=== PATIENT | male | born 1995 | race Caucasian/White ===

== ENCOUNTER 2016-12-24 17:25 | Emergency (ER) | payer OTHER ==
[~2016-12-24] VITALS: Ht 172.7 cm; Wt 68.0 kg
[~2016-12-24 17:25] MED LIST: CIPR500T4 PO; FLAG500T PO; LORTA5 PO
[2016-12-24 17:28] VITALS: BP 134/91; PULSE 100; RESP 20; TEMP 97.7; O2SAT 95
--- NOTE | 2016-12-24 17:43 | PD ---
HPI Chief Complaint: Injury Time Seen by Provider: 17:32 Travel History International Travel<30 days: No Contact w/Intl Traveler<30days: No Traveled to known affect area: No History of Present Illness HPI 21-year-old male presents for evaluation of left great toe pain. Prior to arrival he was kicking a soccer ball barefoot and he attempted to kick it forcefully. Since then he's had pain in his left great toe. There was some bleeding coming from the distal aspect of the nailbed which has since ceased. His pain is primarily in the distal aspect left toe. Pain is throbbing, constant, worse with palpation. He has no other complaints at this time. [facility] Past Medical History Medical History: Denies Significant Hx Cancer: No Cardiovascular Problems: No Diminished Hearing: No Endocrine: No Genitourinary: No Immune Disorder: No Musculoskeletal: No Neurologic: No Psychiatric: No Reproductive: No Respiratory: No Immunizations Current: Yes Tetanus Vaccination: Unknown Past Surgical History Appendectomy: Yes Other Surgery: No Social History Alcohol Use: No Tobacco Use: Yes (4-5 CIGG PER DAY) Substance Use: No Allergies-Medications (Allergen,Severity, Reaction): Coded Allergies: Penicillin (Verified Allergy, Unknown, 12/24/16) Reported Meds & Prescriptions Reported Meds & Active Scripts Active No Active Prescriptions or Reported Medications Review of Systems Musculoskeletal: Positive: Pain, No: Limited ROM Skin: Positive Other (bleeding) Physical Exam Narrative GENERAL: Well-developed well-nourished male in no acute distress SKIN: Warm and dry. CARDIOVASCULAR: Regular rate and rhythm. No murmur appreciated. RESPIRATORY: No accessory muscle use. Clear to auscultation. Breath sounds equal bilaterally. MUSCULOSKELETAL: There is tenderness to palpation to the distal aspect of the left great toe. There is some dried blood at the distal aspect of left great toe. The nail is intact and it is related on the nail bed. It is not avulsed. There is no subungual hematoma formation at this time. NEUROLOGICAL: Awake and alert. No obvious cranial nerve deficits. Motor grossly within normal limits. Normal speech. Data Data Last Documented VS Vital Signs Date Time Temp Pulse Resp B/P Pulse Ox O2 Delivery O2 Flow Rate FiO2 12/24/16 17:28 97.7 100 20 134/91 95 Room Air Orders Toe (Min 2vws) (12/24/16 ) Wound Care (12/24/16 17:37) Acetaminophen (Tylenol) (12/24/16 18:00) MDM Medical Decision Making Medical Screen Exam Complete: Yes Emergency Medical Condition: Yes Medical Record Reviewed: Yes Interpretation(s) Toe x-ray reveals soft tissue swelling, no fracture Differential Diagnosis Partial toenail avulsion, toe fracture, laceration, abrasion, contusion, sprain Narrative Course 21-year-old male with distal left great toe pain after kicking a soccer ball barefooted. On examination he has tenderness to palpation left great toe. Fortunately the nail seems to be intact and still. On the nail bed although there is some dried blood on the distal aspect of nail suggesting at least a partial avulsion off the nail bed. There is no subungual hematoma formation at this time. Discussed the options of leaving the nail in place for comfort versus removing the nail. I feel that the nail is currently salvageable as it is still rated on the nail bed. I explained that there is a chance that the nail will continue to become more loose and avulsed off the nailbed which required that the nail be removed for comfort measures. At this point in time primarily conservative measures haven't recommended including rest, cool compresses a few times a day. Local wound care be provided. X-ray imaging will be obtained. X-ray imaging is negative for fracture. The patient is stable for discharge. Diagnosis Primary Impression: Toe contusion Qualified Code: S90.112A - Contusion of left great toe without damage to nail , initial encounter Additional Instructions: As discussed, currently the nail is intact and the nail bed however there was some bleeding coming from underneath the nail medially after the accident. There is a small chance that the nail will continue to live off the nail bed and if so it may require that the nail be [place] for comfort purposes. Apply cool compresses to the affected area a few times a day 10:15 minutes at a time. Take Tylenol or Motrin for discomfort. Follow-up with primary care physician as needed. Return for any emergent medical conditions. Med/Other Pt SpecificInfo: No Change to Meds, Wound Care Scripts No Active Prescriptions or Reported Meds Disposition: 01 DISCHARGE HOME Condition: Stable Artemio Shipman Dec 24, 2016 17:43
[2016-12-24] MEDS ORDERED: ACETAMINOPHEN 325 MG TAB PO ONE (18:00)
--- NOTE | 2016-12-24 18:10 | RADRPT ---
EXAM DATE/TIME: 12/24/2016 18:00 [facility] COMPARISON: No previous studies available for comparison. INDICATIONS : Pain after injury from soccer ball. MEDICAL HISTORY : None. SURGICAL HISTORY : None. ENCOUNTER: Initial ACUITY: 1 day PAIN SCORE: 7/10 LOCATION: Left great toe. FINDINGS: Examination of the first digit of the left foot demonstrates no evidence of fracture or dislocation. No radiopaque foreign bodies are seen. The soft tissues are prominent. CONCLUSION: Soft tissue swelling without fracture. Benji Felder MD on December 24, 2016 at 18:08 Board Certified Radiologist. This report was verified electronically.
== END 2016-12-24 18:37 | disposition home or self-care (01) ==
LOC: NEPB 17:25
DX: S90.112A Contusion of left great toe without damage to nail, initial encounter (principal); W21.02XA Struck by soccer ball, initial encounter
CPT/HCPCS: 73660; 99283

== ENCOUNTER 2017-04-19 15:05 | Emergency (ER) | payer OTHER ==
[~2017-04-19] VITALS: Ht 170.2 cm; Wt 77.2 kg
[2017-04-19 15:08] VITALS: BP 123/85; PULSE 103; RESP 14; TEMP 98.8; O2SAT 96
[2017-04-19] MEDS ORDERED: IBUP800T23 PO (16:39)
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
[2017-04-19] MEDS ORDERED: KETOROLAC TROMETHAMINE 60 MG/2 ML (IM) VIAL IM ONE (16:45)
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
== END 2017-04-19 17:09 | disposition home or self-care (01) ==
LOC: NEPD 15:05
DX: S80.02XA Contusion of left knee, initial encounter (principal); S80.01XA Contusion of right knee, initial encounter; V49.49XA Driver injured in collision with other motor vehicles in traffic accident, initial encounter; Y92.410 Unspecified street and highway as the place of occurrence of the external cause; Z88.0 Allergy status to penicillin; Z72.0 Tobacco use
CPT/HCPCS: 73564; 96372; 99284; J1885

== ENCOUNTER 2017-04-26 17:12 | Emergency (ER) | payer OTHER ==
[~2017-04-26] VITALS: Ht 175.3 cm; Wt 80.0 kg
[2017-04-26 17:13] VITALS: BP 134/85; PULSE 97; RESP 20; TEMP 98.3; O2SAT 96
[2017-04-26] MEDS ORDERED: METHOCARBAMOL 500 MG TAB PO ONE (17:45)
[2017-04-26] MEDS ORDERED: IBUPROFEN 800 MG TAB PO ONE (17:45)
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
[2017-04-26] MEDS ORDERED: IBUP800T23 PO (17:47)
[2017-04-26] MEDS ORDERED: ROBA500T PO (17:47)
== END 2017-04-26 18:35 | disposition home or self-care (01) ==
LOC: NEPK 17:12
DX: S80.01XD Contusion of right knee, subsequent encounter (principal); Z79.899 Other long term (current) drug therapy; Z88.0 Allergy status to penicillin; X58.XXXD Exposure to other specified factors, subsequent encounter
CPT/HCPCS: 99283; E0113